=== PATIENT | male | born 1945 | race Caucasian/White ===

== ENCOUNTER 2018-07-21 18:05 | Emergency (ER) | payer MEDICARE ==
[~2018-07-21] VITALS: Ht 182.9 cm; Wt 75.0 kg
[~2018-07-21 18:05] MED LIST: MECL-111 PO; ONDA4TAB12 PO
--- NOTE | 2018-07-21 21:32 | NUR ---
PLACED IN ROOM. BROTHER AT BEDSIDE. PT ABLE TO TRANSFER INDEPENDANTLY FROM TO [facility] BUT VERY SLOWLY AND REPORTED THE PAIN WAS 10 OUT OF 10 WHEN TRANSFERRING BUT IF SITTING AND NOT MOVINIG, IT IS 3 OUT OF 10. FEVER 101.0 TYMPAINC AND HE 129. PT REPROTS HE DOES NOT FEEL ILL AND HAS NOT BEEN SICK. ONLY COMPLAINT IS THIS LEFT HIP PAIN . HE REPORTS HE ROLLED OVER ONTO HIS LEFT SIDE 2 DAYS AGO AND IT HURT AND HAS BEEN PROGRESSIVLEY HURTING SINCE. HE CAN BEAR WEIGHT, BUT IT IS VERY PAINFUL. HE REPORTS THE LEG AT TIMES GETS WEAK AND HE ALMOST FALLS.
[2018-07-21] MEDS ORDERED: acetaminophen 325mg tablet PO ONE (21:35)
--- NOTE | 2018-07-21 21:40 | NUR ---
PT WITH FEVER 101.0 HR 129, DR. ROCK IN TO SEE PT AND REQUESTS PT IN A GOWN FOR FURTHER EVALUATION. TYLENOL ORDERED PER ANTIPYRETIC PROTOCOL
--- NOTE | 2018-07-21 21:45 | NUR ---
DR. ROCK TO ORDER TORADOL, SO NO NEED FOR THE TYLENOL I ORDERED PER PROTOCOL.
[2018-07-21] MEDS ORDERED: ketorolac trometh. 30mg/ml inj. IM ONE (22:00)
[2018-07-21 22:29] LABS: CLARITY,URINE CLEAR (Clear); COLOR,URINE YELLOW (Yellow); GLUCOSE, URINE 500 mg/dl (Neg); KETONES,URINE TRACE mg/dl (Neg); LEUKOCYTE ESTERASE ,URINE NEGATIVE (Neg); NITRITES, URINE NEGATIVE (Neg); OCCULT BLOOD,URINE SMALL (Neg); PH,URINE 5.5 (4.8-8.0); PROTEIN,URINE NEGATIVE (Neg); UROBILINOGEN,URINE 0.2 E.U/dL (0.2-1.0)
[2018-07-21 22:35] LABS: UA COLLECTION TYPE CLN CATCH MIDSTREAM
[2018-07-21 22:37] LABS: BACTERIA,URINE FEW /HPF (Neg); MUCUS STRANDS MANY /LPF (Neg); RBC,URINE 0-2 /HPF (0-2); SQUAMOUS EPITHELIAL CELL,UR FEW /LPF (FEW); WBC,URINE 0-4 /HPF (0-4)
[2018-07-21 22:42] VITALS: BP 134/83
--- NOTE | 2018-07-21 22:44 | NUR ---
UA RESULTED, FLU SWAB PENDING, TEMP REMAINS 101.0 BUT HR NOW 116 , PT RECEIVED TORADOL INJECTION IM 30 MIN AGO. BROTHER REMAINS AT BEDSIDE.
[2018-07-21] MEDS ORDERED: IBUP-1985 PO (23:53)
== END 2018-07-22 00:05 | disposition home or self-care (01) ==
LOC: ER 18:05
DX: M25.552 Pain in left hip (principal); R50.9 Fever, unspecified; Z90.89 Acquired absence of other organs; Z90.49 Acquired absence of other specified parts of digestive tract
CPT/HCPCS: 71046; 72170; 81001; 82948; 87502; 87503; 96372; 99284; J1885